=== PATIENT | female | born 1950 | race Caucasian/White ===

== ENCOUNTER 2020-03-23 21:26 | Emergency (ER) | payer MEDICARE, MEDICAID ==
[~2020-03-23] VITALS: Ht 152.4 cm; Wt 36.4 kg
--- NOTE | 2020-03-23 22:11 | NUR ---
pt currently in the bathroom for UA sample.
[2020-03-23] MEDS ORDERED: HYDROcodone/acetaminophen 5mg/325mg tablet PO ONE (22:30)
--- NOTE | 2020-03-23 22:30 | NUR ---
pts son in law is [email or web address]. he will be picking her up. his phone number is [phone]
[2020-03-23 22:46] VITALS: BP 162/88
== END 2020-03-23 22:47 | disposition home or self-care (01) ==
LOC: ER 21:26
DX: M54.5 Low back pain (principal); G89.29 Other chronic pain
CPT/HCPCS: 99283

== ENCOUNTER 2023-09-11 16:10 | Inpatient (IN) | payer MEDICAID, MEDICARE ==
[~2023-09-11] VITALS: Ht 157.5 cm; Wt 40.9 kg
[2023-09-11 17:55] LABS: WHITE BLOOD COUNT 5.9 X10'3 (4.5-11.0)
[2023-09-11 17:59] LABS: HEMATOCRIT 37.9 % (35.0-45.0); HEMOGLOBIN 12.7 g/dl (12.0-16.0); MEAN CORPUSCULAR HEMOGLOBIN 32.2 PG (27.0-31.0); MEAN CORPUSCULAR HGB CONC 33.5 g/dL (33.0-36.5); MEAN CORPUSCULAR VOLUME 96.2 FL (78-98); MEAN PLATELET VOLUME 7.9 FL (7.4-10.4); PLATELET COUNT 291 X10'3 (140-440); RED BLOOD COUNT 3.94 X10'6 (4.20-5.60); RED CELL DISTRIBUTION WIDTH 13.2 % (11.5-14.5)
[2023-09-11 18:05] LABS: ALANINE AMINOTRANSFERASE 27 U/L (12-78); ALBUMIN/GLOBULIN RATIO 1.4 (1.1-1.5); ALKALINE PHOSPHATASE 81 IU/L (46-116); ANION GAP 11 (8-16); ASPARTATE AMINO TRANSFERASE 27 U/L (10-37); BILIRUBIN,TOTAL 0.4 MG/DL (0.1-1.0); BLOOD UREA NITROGEN 14 MG/DL (7-18); BUN/CREATININE RATIO 14.6 (10.0-20.0); CALCIUM 9.2 MG/DL (8.5-10.1); CHLORIDE 101 MMOL/L (99-107); CREATININE 0.96 MG/DL (0.40-0.90); GLUCOSE 127 MG/DL (70-104); POTASSIUM 3.5 MMOL/L (3.5-5.1); SODIUM 138 MMOL/L (135-145); TOTAL PROTEIN 6.9 G/DL (6.4-8.2); eCRCL 33 ML/MIN; eGFR 57 ML/MIN
[2023-09-11] MEDS ORDERED: dexamethasone sod phosphate 10mg/ml inj IV STA (18:48)
[2023-09-11] MEDS ORDERED: albuterol 2.5 MG/3 ML nebule NEB ONE (18:50)
[2023-09-11] MEDS ORDERED: ipratropium 0.5 MG/2.5ML nebule IH ONE (18:50)
[2023-09-11] MEDS ORDERED: aspirin 81mg tab.chew PO ONE (18:50)
[2023-09-11 19:05] LABS: ANISOCYTOSIS 1+; BURR CELLS FEW; ELLIPTOCYTES FEW; PLATELET ESTIMATE NORMAL; SMUDGE CELLS FEW; TOTAL CELLS COUNTED 100
[2023-09-11 19:14] LABS: MAGNESIUM 1.9 MG/DL (1.5-2.4); PRO BRAIN NATRIURETIC PEPTIDE 1758 PG/ML (0-125)
[2023-09-11] MEDS ORDERED: heparin 25,000 UNIT/250ml bag 250 ML IV PRN (19:45)
[2023-09-11] MEDS ORDERED: heparin 10,000 units/1 ML INJ IV PRN (19:45)
[2023-09-11] MEDS ORDERED: heparin 10,000 units/1 ML INJ IV ONE ×2 (19:45→19:55)
[2023-09-11 19:57] LABS: APTT 24 SECONDS (22-32); PROTHROMBIN TIME 10.5 SECONDS (9.0-12.0)
[2023-09-12] VITALS (12 sets, daily range): BP systolic 144–176; BP diastolic 66–87; PULSE 83–127; RESP 16–36; TEMP 97.5–97.7; O2SAT 92–97
[2023-09-12] MEDS ORDERED: diphenhydrAMINE 50 mg/ml inj IV PRN (01:25)
[2023-09-12] MEDS ORDERED: bisacodyl 10mg suppository rectal RC PRN (01:25)
[2023-09-12] MEDS ORDERED: morphine 2 MG/ML inj. syringe IV PRN (01:25)
[2023-09-12] MEDS ORDERED: ipratropium/albuterol 3ml nebule NEB PRN ×2 (01:25→08:00)
[2023-09-12] MEDS ORDERED: mag hydrox/Alum hydrox/simeth 30ml oral suspension PO PRN (01:25)
[2023-09-12] MEDS ORDERED: diphenhydrAMINE 25mg capsule PO PRN (01:25)
[2023-09-12] MEDS ORDERED: HYDROcodone/acetaminophen 5mg/325mg tablet PO PRN (01:25)
[2023-09-12] MEDS ORDERED: acetaminophen 325mg tablet PO PRN ×2 (01:25)
[2023-09-12] MEDS ORDERED: ondansetron 4mg rapidly disintigrating tab PO PRN (01:25)
[2023-09-12] MEDS ORDERED: magnesium hydroxide 30ml (MOM) UD suspension PO PRN (01:25)
[2023-09-12] MEDS ORDERED: ondansetron/PF 4mg/2ml inj IV PRN (01:25)
[2023-09-12] MEDS ORDERED: acetaminophen 650mg rectal suppository RC PRN (01:25)
[2023-09-12] MEDS: normal saline 1000ml 1,000 ML IV SCH (01:58)
[2023-09-12 02:22] LABS: D-DIMER 0.23 MG/L FEU (0-0.50); MAGNESIUM 1.9 MG/DL (1.5-2.4); PHOSPHORUS 4.9 MG/DL (2.3-4.5)
[2023-09-12] MEDS ORDERED: ALB0.5UD NEB (07:42)
[2023-09-12] MEDS ORDERED: BUPR150T8 PO (07:42)
[2023-09-12] MEDS ORDERED: AMLO2.5T2 PO (07:42)
[2023-09-12] MEDS ORDERED: BUDE10.2 INH (07:42)
[2023-09-12] MEDS ORDERED: TRAZ300T2 PO (07:42)
[2023-09-12] MEDS ORDERED: ATEN-169 PO (07:42)
[2023-09-12] MEDS ORDERED: LOSA-416 PO (07:42)
[2023-09-12] MEDS: docusate sod 100mg capsule PO SCH ×2 (07:48→21:12)
[2023-09-12] MEDS: aspirin 81mg, enteric-coated 1 TAB TABLET.DR PO SCH (07:54)
[2023-09-12] MEDS: methylPREDNISolone sod succ/PF 40mg inj. IV SCH ×2 (07:58→21:11)
[2023-09-12] MEDS ORDERED: carVEDilol 3.125mg tablet PO SCH (08:00)
[2023-09-12] MEDS ORDERED: nitroGLYCERIN 0.1mg/hour patch TD SCH (08:00)
[2023-09-12] MEDS ORDERED: furosemide 20 MG/2 ML vial IV SCH (08:00)
[2023-09-12] MEDS ORDERED: atorvastatin 10mg tablet PO SCH (08:00)
[2023-09-12] MEDS: pantoprazole 40mg Tablet.DR PO SCH (08:10)
[2023-09-12] MEDS: ipratropium/albuterol 3ml nebule NEB SCH ×4 (09:42→23:38)
[2023-09-12] MEDS: albuterol 2.5 MG/3 ML nebule NEB SCH ×2 (15:00→23:40)
[2023-09-12] MEDS ORDERED: temazepam 15mg capsule PO PRN (21:00)
[2023-09-12] MEDS: buPROPion SR 150mg tablet PO SCH (21:12)
[2023-09-12] MEDS: traZODone 50mg tablet PO SCH (21:12)
[2023-09-12] MEDS: budesonide 0.5mg/2ml UD nebule IH SCH (23:38)
[2023-09-13] VITALS (20 sets, daily range): BP systolic 120–142; BP diastolic 75–89; PULSE 66–111; RESP 12–33; TEMP 97.5–98.2; O2SAT 84–100
[2023-09-13] MEDS: ipratropium/albuterol 3ml nebule NEB SCH ×6 (02:53→23:03)
[2023-09-13 07:29] LABS: BASOPHILS % (AUTO) 0.4 % (0-1); EOSINOPHILS % (AUTO) 0.1 % (0-6); HEMATOCRIT 34.4 % (35.0-45.0); HEMOGLOBIN 11.3 g/dl (12.0-16.0); LYMPHOCYTES % (AUTO) 14.7 % (21-51); MEAN CORPUSCULAR HEMOGLOBIN 31.7 PG (27.0-31.0); MEAN CORPUSCULAR HGB CONC 32.9 g/dL (33.0-36.5); MEAN CORPUSCULAR VOLUME 96.5 FL (78-98); MEAN PLATELET VOLUME 8.2 FL (7.4-10.4); MONOCYTES # (AUTO) 0.4 X10'3 (0-0.9); MONOCYTES % (AUTO) 5.7 % (2-12); NEUTROPHILS # (AUTO) 5.3 X10'3 (1.8-7.7); NEUTROPHILS % (AUTO) 79.1 % (42-75); PLATELET COUNT 263 X10'3 (140-440); RED BLOOD COUNT 3.56 X10'6 (4.20-5.60); RED CELL DISTRIBUTION WIDTH 13.3 % (11.5-14.5); WHITE BLOOD COUNT 6.7 X10'3 (4.5-11.0)
[2023-09-13 07:58] LABS: ALANINE AMINOTRANSFERASE 25 U/L (12-78); ALBUMIN 3.5 G/DL (3.4-5.0); ALBUMIN/GLOBULIN RATIO 1.3 (1.1-1.5); ALKALINE PHOSPHATASE 71 IU/L (46-116); ANION GAP 9 (8-16); ASPARTATE AMINO TRANSFERASE 23 U/L (10-37); BILIRUBIN,TOTAL 0.3 MG/DL (0.1-1.0); BLOOD UREA NITROGEN 27 MG/DL (7-18); CALCIUM 9.4 MG/DL (8.5-10.1); CHLORIDE 106 MMOL/L (99-107); CREATININE 0.87 MG/DL (0.40-0.90); GLUCOSE 125 MG/DL (70-104); POTASSIUM 4.4 MMOL/L (3.5-5.1); SODIUM 140 MMOL/L (135-145); TOTAL CARBON DIOXIDE 24.8 MMOL/L (24-32); TOTAL PROTEIN 6.2 G/DL (6.4-8.2); eCRCL 37 ML/MIN; eGFR 64 ML/MIN
[2023-09-13] MEDS: amLODIPine 5mg tablet PO SCH (08:00)
[2023-09-13] MEDS: docusate sod 100mg capsule PO SCH ×2 (08:00→19:43)
[2023-09-13] MEDS: aspirin 81mg, enteric-coated 1 TAB TABLET.DR PO SCH (08:14)
[2023-09-13] MEDS: pantoprazole 40mg Tablet.DR PO SCH (08:14)
[2023-09-13] MEDS: atenolol 50mg tablet PO SCH (08:16)
[2023-09-13] MEDS: buPROPion SR 150mg tablet PO SCH ×2 (08:16→19:42)
[2023-09-13] MEDS: methylPREDNISolone sod succ/PF 40mg inj. IV SCH ×2 (08:17→20:23)
[2023-09-13] MEDS: budesonide 0.5mg/2ml UD nebule IH SCH ×2 (09:17→19:19)
[2023-09-13] MEDS: traZODone 50mg tablet PO SCH (21:52)
[2023-09-14] VITALS (15 sets, daily range): BP systolic 88–145; BP diastolic 59–77; PULSE 66–85; RESP 16–28; TEMP 96.8–99.2; O2SAT 95–99
[2023-09-14] MEDS: methylPREDNISolone sod succ/PF 40mg inj. IV SCH ×4 (01:32→22:02)
[2023-09-14] MEDS: ipratropium/albuterol 3ml nebule NEB SCH ×6 (03:16→23:00)
[2023-09-14 06:16] LABS: BASOPHILS % (AUTO) 0.3 % (0-1); EOSINOPHILS % (AUTO) 0.1 % (0-6); HEMATOCRIT 34.3 % (35.0-45.0); HEMOGLOBIN 11.3 g/dl (12.0-16.0); LYMPHOCYTES # (AUTO) 0.5 X10'3 (1.1-4.8); LYMPHOCYTES % (AUTO) 8.6 % (21-51); MEAN CORPUSCULAR HEMOGLOBIN 32.2 PG (27.0-31.0); MEAN CORPUSCULAR VOLUME 97.4 FL (78-98); MEAN PLATELET VOLUME 8.6 FL (7.4-10.4); MONOCYTES # (AUTO) 0.1 X10'3 (0-0.9); MONOCYTES % (AUTO) 2.2 % (2-12); NEUTROPHILS # (AUTO) 5.2 X10'3 (1.8-7.7); NEUTROPHILS % (AUTO) 88.8 % (42-75); PLATELET COUNT 245 X10'3 (140-440); RED BLOOD COUNT 3.52 X10'6 (4.20-5.60); RED CELL DISTRIBUTION WIDTH 13.1 % (11.5-14.5); WHITE BLOOD COUNT 5.9 X10'3 (4.5-11.0)
[2023-09-14] MEDS: normal saline 1000ml 1,000 ML IV SCH (06:30)
[2023-09-14 06:46] LABS: ALANINE AMINOTRANSFERASE 28 U/L (12-78); ALBUMIN 3.3 G/DL (3.4-5.0); ALBUMIN/GLOBULIN RATIO 1.2 (1.1-1.5); ALKALINE PHOSPHATASE 60 IU/L (46-116); ANION GAP 7 (8-16); ASPARTATE AMINO TRANSFERASE 19 U/L (10-37); BILIRUBIN,TOTAL 0.2 MG/DL (0.1-1.0); BLOOD UREA NITROGEN 26 MG/DL (7-18); BUN/CREATININE RATIO 32.1 (10.0-20.0); CALCIUM 9.2 MG/DL (8.5-10.1); CHLORIDE 104 MMOL/L (99-107); CREATININE 0.81 MG/DL (0.40-0.90); GLUCOSE 128 MG/DL (70-104); POTASSIUM 4.5 MMOL/L (3.5-5.1); PRO BRAIN NATRIURETIC PEPTIDE 1665 PG/ML (0-125); SODIUM 137 MMOL/L (135-145); TOTAL CARBON DIOXIDE 25.8 MMOL/L (24-32); eCRCL 39 ML/MIN; eGFR 69 ML/MIN
[2023-09-14] MEDS: amLODIPine 5mg tablet PO SCH (07:48)
[2023-09-14] MEDS: aspirin 81mg, enteric-coated 1 TAB TABLET.DR PO SCH (07:48)
[2023-09-14] MEDS: pantoprazole 40mg Tablet.DR PO SCH (07:49)
[2023-09-14] MEDS: buPROPion SR 150mg tablet PO SCH ×2 (07:49→20:45)
[2023-09-14] MEDS: atenolol 50mg tablet PO SCH (07:49)
[2023-09-14] MEDS: docusate sod 100mg capsule PO SCH ×2 (07:49→20:00)
[2023-09-14] MEDS: losartan 50mg tablet PO SCH (07:50)
[2023-09-14] MEDS: budesonide 0.5mg/2ml UD nebule IH SCH ×2 (09:07→19:46)
[2023-09-14] MEDS: guaiFENesin/DM 10ml UD oral syrup PO PRN (13:57)
[2023-09-14] MEDS: traZODone 50mg tablet PO SCH (20:45)
[2023-09-15] VITALS (11 sets, daily range): BP systolic 99–116; BP diastolic 63–73; PULSE 62–80; RESP 20–24; TEMP 97.2–98.7; O2SAT 85–98
[2023-09-15] MEDS: ipratropium/albuterol 3ml nebule NEB SCH ×6 (03:00→22:55)
[2023-09-15] MEDS: methylPREDNISolone sod succ/PF 40mg inj. IV SCH ×4 (03:45→19:56)
[2023-09-15 06:55] LABS: BASOPHILS % (AUTO) 0.2 % (0-1); EOSINOPHILS % (AUTO) 0.1 % (0-6); HEMATOCRIT 34.8 % (35.0-45.0); HEMOGLOBIN 11.4 g/dl (12.0-16.0); LYMPHOCYTES # (AUTO) 0.8 X10'3 (1.1-4.8); LYMPHOCYTES % (AUTO) 11.1 % (21-51); MEAN CORPUSCULAR HEMOGLOBIN 31.9 PG (27.0-31.0); MEAN CORPUSCULAR HGB CONC 32.7 g/dL (33.0-36.5); MEAN CORPUSCULAR VOLUME 97.5 FL (78-98); MEAN PLATELET VOLUME 8.5 FL (7.4-10.4); MONOCYTES # (AUTO) 0.4 X10'3 (0-0.9); NEUTROPHILS # (AUTO) 6.1 X10'3 (1.8-7.7); NEUTROPHILS % (AUTO) 83.6 % (42-75); PLATELET COUNT 243 X10'3 (140-440); RED BLOOD COUNT 3.57 X10'6 (4.20-5.60); RED CELL DISTRIBUTION WIDTH 13.2 % (11.5-14.5); WHITE BLOOD COUNT 7.2 X10'3 (4.5-11.0)
[2023-09-15 07:24] LABS: ALANINE AMINOTRANSFERASE 30 U/L (12-78); ALBUMIN 3.2 G/DL (3.4-5.0); ALBUMIN/GLOBULIN RATIO 1.2 (1.1-1.5); ALKALINE PHOSPHATASE 55 IU/L (46-116); ANION GAP 5 (8-16); ASPARTATE AMINO TRANSFERASE 19 U/L (10-37); BILIRUBIN,TOTAL 0.2 MG/DL (0.1-1.0); BLOOD UREA NITROGEN 27 MG/DL (7-18); BUN/CREATININE RATIO 28.4 (10.0-20.0); CALCIUM 9.1 MG/DL (8.5-10.1); CHLORIDE 104 MMOL/L (99-107); CREATININE 0.95 MG/DL (0.40-0.90); GLUCOSE 122 MG/DL (70-104); POTASSIUM 4.9 MMOL/L (3.5-5.1); SODIUM 137 MMOL/L (135-145); TOTAL CARBON DIOXIDE 27.7 MMOL/L (24-32); TOTAL PROTEIN 5.8 G/DL (6.4-8.2); eCRCL 34 ML/MIN; eGFR 58 ML/MIN
[2023-09-15] MEDS ORDERED: DOXYCYCLINE 100MG CAPSULE PO STA (08:07)
[2023-09-15] MEDS: guaiFENesin/DM 10ml UD oral syrup PO PRN ×2 (08:38→19:46)
[2023-09-15] MEDS: budesonide 0.5mg/2ml UD nebule IH SCH ×2 (08:50→19:33)
[2023-09-15] MEDS: aspirin 81mg, enteric-coated 1 TAB TABLET.DR PO SCH (09:49)
[2023-09-15] MEDS: buPROPion SR 150mg tablet PO SCH ×2 (09:49→19:46)
[2023-09-15] MEDS: pantoprazole 40mg Tablet.DR PO SCH (09:49)
[2023-09-15] MEDS: atenolol 50mg tablet PO SCH (09:50)
[2023-09-15] MEDS: docusate sod 100mg capsule PO SCH ×2 (09:51→19:48)
[2023-09-15] MEDS: amLODIPine 5mg tablet PO SCH (10:38)
[2023-09-15] MEDS: losartan 50mg tablet PO SCH (10:39)
[2023-09-15] MEDS: DOXYCYCLINE 100MG CAPSULE PO SCH (17:59)
[2023-09-15] MEDS: traZODone 50mg tablet PO SCH (19:46)
[2023-09-16] VITALS (10 sets, daily range): BP systolic 127–151; BP diastolic 80–82; PULSE 67–80; RESP 16–22; TEMP 98.6–98.8; O2SAT 92–97
[2023-09-16] MEDS: methylPREDNISolone sod succ/PF 40mg inj. IV SCH ×2 (02:22→10:09)
[2023-09-16] MEDS: ipratropium/albuterol 3ml nebule NEB SCH ×3 (03:23→12:18)
[2023-09-16 07:26] LABS: BASOPHILS % (AUTO) 0.1 % (0-1); EOSINOPHILS % (AUTO) 0 % (0-6); HEMATOCRIT 40.3 % (35.0-45.0); HEMOGLOBIN 13.4 g/dl (12.0-16.0); LYMPHOCYTES # (AUTO) 0.7 X10'3 (1.1-4.8); LYMPHOCYTES % (AUTO) 9.7 % (21-51); MEAN CORPUSCULAR HEMOGLOBIN 32.1 PG (27.0-31.0); MEAN CORPUSCULAR HGB CONC 33.2 g/dL (33.0-36.5); MEAN CORPUSCULAR VOLUME 96.8 FL (78-98); MEAN PLATELET VOLUME 8.6 FL (7.4-10.4); MONOCYTES # (AUTO) 0.2 X10'3 (0-0.9); NEUTROPHILS # (AUTO) 6.7 X10'3 (1.8-7.7); NEUTROPHILS % (AUTO) 87.2 % (42-75); PLATELET COUNT 303 X10'3 (140-440); RED BLOOD COUNT 4.17 X10'6 (4.20-5.60); RED CELL DISTRIBUTION WIDTH 13.1 % (11.5-14.5); WHITE BLOOD COUNT 7.7 X10'3 (4.5-11.0)
[2023-09-16 07:44] LABS: ALANINE AMINOTRANSFERASE 32 U/L (12-78); ALBUMIN 3.7 G/DL (3.4-5.0); ALBUMIN/GLOBULIN RATIO 1.1 (1.1-1.5); ALKALINE PHOSPHATASE 72 IU/L (46-116); ANION GAP 6 (8-16); ASPARTATE AMINO TRANSFERASE 17 U/L (10-37); BILIRUBIN,TOTAL 0.3 MG/DL (0.1-1.0); BLOOD UREA NITROGEN 25 MG/DL (7-18); BUN/CREATININE RATIO 26.9 (10.0-20.0); CALCIUM 9.5 MG/DL (8.5-10.1); CHLORIDE 101 MMOL/L (99-107); CREATININE 0.93 MG/DL (0.40-0.90); GLUCOSE 113 MG/DL (70-104); POTASSIUM 4.1 MMOL/L (3.5-5.1); SODIUM 137 MMOL/L (135-145); TOTAL CARBON DIOXIDE 29.6 MMOL/L (24-32); TOTAL PROTEIN 7.1 G/DL (6.4-8.2); eCRCL 34 ML/MIN; eGFR 59 ML/MIN
[2023-09-16] MEDS: docusate sod 100mg capsule PO SCH (08:00)
[2023-09-16] MEDS: aspirin 81mg, enteric-coated 1 TAB TABLET.DR PO SCH (08:24)
[2023-09-16] MEDS: buPROPion SR 150mg tablet PO SCH (08:24)
[2023-09-16] MEDS: losartan 50mg tablet PO SCH (08:24)
[2023-09-16] MEDS: pantoprazole 40mg Tablet.DR PO SCH (08:25)
[2023-09-16] MEDS: DOXYCYCLINE 100MG CAPSULE PO SCH (08:25)
[2023-09-16] MEDS: atenolol 50mg tablet PO SCH (08:25)
[2023-09-16] MEDS: amLODIPine 5mg tablet PO SCH (08:25)
[2023-09-16] MEDS: budesonide 0.5mg/2ml UD nebule IH SCH (09:12)
[2023-09-16] MEDS ORDERED: PRED20TA PO (12:09)
[2023-09-16] MEDS ORDERED: DOXY-224 PO (12:09)
[2023-09-16] MEDS ORDERED: IPRA3AMP31 IH (12:09)
== END 2023-09-16 16:10 | disposition home health service (06) | DRG 189 ==
LOC: ER 16:11 → ED HOLD 09-12 01:29 → EDBEDREQ 09-12 18:55 → PCU 3S 09-12 19:50
PROVIDERS: ADMIT Family Medicine; ATTEND Family Medicine
DX: J96.21 Acute and chronic respiratory failure with hypoxia (principal); I21.A1 Myocardial infarction type 2; J44.1 Chronic obstructive pulmonary disease with (acute) exacerbation; E46 Unspecified protein-calorie malnutrition; J44.0 Chronic obstructive pulmonary disease with (acute) lower respiratory infection; Z68.1 Body mass index [BMI] 19.9 or less, adult; I11.0 Hypertensive heart disease with heart failure; F32.A Depression, unspecified; G89.4 Chronic pain syndrome; Z20.822 Contact with and (suspected) exposure to COVID-19; I27.20 Pulmonary hypertension, unspecified; J20.9 Acute bronchitis, unspecified; E83.39 Other disorders of phosphorus metabolism; F17.200 Nicotine dependence, unspecified, uncomplicated; Z99.81 Dependence on supplemental oxygen; Z88.2 Allergy status to sulfonamides; Z79.899 Other long term (current) drug therapy; Z71.6 Tobacco abuse counseling
CPT/HCPCS: 36415; 71045; 71250; 80053; 83735; 83880; 84100; 84484; 85007; 85025; 85379; 85610; 85730; 87081; 87811; 93306; 94640; 94760; 96365; 96375; 96376; 97110; 97161; 97530; 99285; A4615; G0378; J1100; J1644; J2920; J7030